=== PATIENT | female | born 1990 | race Caucasian/White ===

== ENCOUNTER 2020-07-24 15:49 | Outpatient (REF) | payer MEDICARE, MEDICAID, SELFPAY ==
[2020-07-24 20:15] LABS: Bilirubin Negative (Negative); Blood Negative (Negative); Clarity Clear (Clear); Glucose Negative (Negative); Ketones Negative (Negative); Leukocyte Esterase Small (Negative); Nitrite Negative (Negative); Urobilinogen 0.2 EU/dL (Up TO 0.2)
[2020-07-24 20:38] LABS: Bacteria Many HPF (Negative); C & S Indicated? Yes; Casts Negative LPF (Negative); Crystals Negative HPF (Negative); Epithelial Cells Few HPF (Negative); Mucus Negative (Negative); RBC 0-2 HPF (0-2); WBC 20-50 HPF (0-5)
== END 2020-07-24 16:09 ==
LOC: NCHCN 15:49
PROVIDERS: PCP Family Medicine; Visit Provider Family Medicine
DX: R82.90 Unspecified abnormal findings in urine (principal)
CPT/HCPCS: 87077; 81003; 81015; 87086; 87186

== ENCOUNTER 2020-08-14 02:04 | Outpatient (CLI) | payer MEDICARE, MEDICAID, SELFPAY ==
[2020-08-16 12:05] LABS: SARS-CoV-2 RNA Not Detected (NotDetected); SARS-CoV-2 RNA Source Nasal/Nares
== END 2020-08-14 02:24 ==
PROVIDERS: Family Medicine; PCP Family Medicine; Visit Provider Family Medicine
DX: R06.09 Other forms of dyspnea (principal)
CPT/HCPCS: U0003

== ENCOUNTER 2020-08-17 04:48 | Outpatient (CLI) | payer MEDICARE, MEDICAID, SELFPAY ==
[2020-08-17] MEDS: Albuterol HFA 18 GM 200 PUFF INH IH (16:10)
[2020-08-17] MEDS: Inhaler, Assist Device 1 EACH MC (16:10)
--- NOTE | 2020-08-19 08:13 | PFT_ITS ---
Date of service: 08/17/20 Time of Service: 03:08 Pulmonary Function Test Result Interpretation Spirometry: no evidence of obstructive airway disease, no bronchodilator response. Mildly low MEP, normal MIP. MVV was not tested Lung Volumes: no restriciton, slight hyperinflation and air trapping Diffusion Capacity: elevated Airway Pressure: normal Impression Elevated isolated diffusion capacity with some element of hyperinflation and air trapping. This constellation of findings can be seen in early hyperreactive airway disease or asthma, therefore if the diagnosis of asthma is in question, proceeding with methacholine challenge testing may prove to be useful. Res piratory muscular function testing shows slightly low MEP but normal MIP. This is unlikely to represent any significant respiratory neuromuscular disease. Clinical Correlation therefore is recommended.
== END 2020-08-17 05:08 ==
PROVIDERS: PCP Family Medicine; Visit Provider Family Medicine
DX: R06.09 Other forms of dyspnea (principal); R07.89 Other chest pain
CPT/HCPCS: 94060; 94726; 94729

== ENCOUNTER 2020-08-17 16:51 | Emergency (ER) | payer MEDICARE, MEDICAID, SELFPAY ==
[2020-08-17] VITALS (23 sets, daily range): BP systolic 92–125; BP diastolic 57–78; PULSE 72–136; RESP 12–24; TEMP 36.7; O2SAT 95–100
--- NOTE | 2020-08-17 17:20 | DI.RAD_ITS ---
EXAM: XR CHEST 2V PA LATERAL CLINICAL HISTORY: near syncope TECHNIQUE: 2D digital imaging was performed. COMPARISON: No exams were available for comparison FINDINGS: MEDIASTINUM: Normal. HEART: Normal. PULMONARY VASCULATURE: Normal. LUNGS: Clear. PLEURAL SPACE: No pleural effusion or pneumothorax. BONE:Normal. OTHER FINDINGS:RELOCATION ASSOCIATE shunt tubing seen along the right side the neck and right and anterior chest wall. IMPRESSION: No acute pulmonary findings. DATA REPOSITORY: RADIATION DOSE DELIVERED:
--- NOTE | 2020-08-17 17:22 | ED.GENADUL_ITS ---
Discharge Plan Disposition Patient Disposition: HOME Condition: Improving Discharge Details Clinical Impression: Acute hypokalemia Primary Care Provider: Yanet Mathis ED Provider: Jhonathan Topete Home Meds and New Rx's Prescriptions: Continued sertraline 25 mg tablet 25 mg PO DAILY RF: 0 albuterol sulfate [ProAir HFA] 90 mcg/actuation HFA aerosol inhaler 2 puff inhalation Q6H PRNRF: 0 baclofen 10 mg tablet 10 mg PO DAILY RF: 0 amitriptyline 10 mg tablet 15 mg PO DAILY RF: 0 montelukast [Singulair] 10 mg tablet 10 mg PO DAILY RF: 0 fluticasone propionate 50 mcg/actuation spray,suspension 1 spray intranasal DAILY RF: 0 fexofenadine [Chata Allergy] 180 mg tablet 180 mg PO DAILY RF: 0 ascorbic acid (vitamin C) 500 mg capsule 500 mg PO DAILY RF: 0 calcium-vitamin D3-vitamin K [Citracal-D3 Soft Chew] 500 mg-1,000 unit-40 mcg tablet,chewable 1 tab PO 5XW RF: 0 ascorbic acid (vitamin C) 100 mg tablet 300 mg PO DAILY RF: 0 multivitamin Capsule 1 cap PO DAILY RF: 0 Discharge Instructions Instructions: Hypokalemia (ED) Additional Instructions: Home to rest this evening. Continue to hydrate with small, frequent sips of fluids to maintain hydration. As we discussed, please liberalize potassium containing foods in the diet such as bananas, strawberries, tree nuts such as cashews or almonds. We will ask our care management team to get a follow-up appointment for you and your primary care clinic for recheck of potassium levels. Return to the emergency department for any acute concerns. Medical Decision Making 29-year-old female who was referred from respiratory therapy. Patient was undergoing PFTs today, and after her second inhalation of albuterol became lightheaded and felt tingling in her fingertips. She did not have a syncopal event. There was no chest pain. She arrives improved. She had little to eat today. Otherwise her review of systems is unremarkable. Patient well-appearing and in no acute distress. She does have a slight resting tachycardia approximately 100. Her exam is otherwise reassuring. There is diagnosed with dehydration, electrolyte abnormality, occult cardiopulmonary process. IV placed, fluids initiated, patient referred for laboratory testing, chest x- ray, EKG. Chest x-ray unremarkable. Labs are notable for a potassium of 3.0. This was supplemented both orally and parenterally in the ED. Patient had an evening meal. Note that her urine was a self catheterized sample. Likely contaminated. Patient felt significantly better after food and potassium. No other concerning findings on her work-up. We will ask care management to arrange an outpatient follow-up for her to ensure normalization of her potassium levels. She will liberalize dietary potassium in the outpatient setting. Stable and improved, appropriate for discharge to home with her mother. Lab Data Lab results reviewed: Yes I reviewed the patient's lab results. Labs: Laboratory Results - last 24 hr 08/17/20 08/17/20 17:35 17:35 WBC 10.62 RBC 4.88 Hgb 13.9 Hct 41.4 MCV 84.8 MCH 28.5 MCHC 33.6 RDW 11.7 Plt Count 283 MPV 9.2 Immature Gran % 0.4 Neutrophils % 79.6 Lymphocytes % 15.1 Monocytes % 4.2 Eosinophils % 0.3 Basophils % 0.4 Nucleated RBC % 0 Absolute Neutrophils 8.46 H Absolute Lymphocytes 1.60 Absolute Monocytes 0.45 Absolute Eosinophils 0.03 Absolute Basophils 0.04 Sodium 136 Potassium 3.0 L Chloride 100 Carbon Dioxide 24.2 Anion Gap 11.8 H BUN 13 Creatinine 0.80 Estimated GFR/1.73 m2 >= 60.00 Glucose 173 H Calcium 9.5 Total Bilirubin 0.4 AST 17 ALT 25 Alkaline Phosphatase 70 Troponin I < 0.05 Total Protein 7.4 Albumin 4.1 HPI General Mode of arrival: ambulatory . Date/Time Provider Initiated Documentation: 08/17/20 16:52 . Limitations to Documentation: no limitations . Information obtained by: patient . History of Present Illness 29 year old F presents to the emergency department with the chief complaint of Near syncope during PFT's, described as moderate, Patient reports no radiation. Patient started experiencing this minute(s) and it has been now resolved. No relieving factors improve symptom(s), No exacerbating factors reported . Patient notes no other symptoms.; denies chest pain, loss of appetite, nausea/vomiting, shortness of breath and syncope. Patient did receive the following treatments prior to arrival, none Related Data Home Medications Medication Instructions Recorded Confirmed albuterol sulfate 90 mcg/actuation 2 puff INHALATION Q6H PRN 07/29/20 08/17/20 aerosol inhaler amitriptyline 10 mg tablet 15 mg PO DAILY tab 07/29/20 08/17/20 ascorbic acid (vitamin C) 100 mg 300 mg PO DAILY tab 07/29/20 08/17/20 tablet ascorbic acid (vitamin C) 500 mg 500 mg PO DAILY 07/29/20 08/17/20 capsule baclofen 10 mg tablet 10 mg PO DAILY 07/29/20 08/17/20 calcium-vitamin D3-vitamin K 500 1 tab PO 5XW 07/29/20 08/17/20 mg-1,000 unit-40 mcg chewable tablet fexofenadine 180 mg tablet 180 mg PO DAILY 07/29/20 08/17/20 fluticasone propionate 50 1 spray INTRANASAL DAILY 07/29/20 08/17/20 mcg/actuation nasal spray,suspension montelukast 10 mg tablet 10 mg PO DAILY 07/29/20 08/17/20 multivitamin 1 cap PO DAILY 07/29/20 08/17/20 sertraline 25 mg tablet 25 mg PO DAILY 07/29/20 08/17/20 Allergies Allergy/AdvReac Type Severity Reaction Status Date / Time latex Allergy Verified 08/17/20 17:06 General Stated Complaint: Dizzy/Sync JODI: 3 Review of Systems Narrative: No recent illness. Has had some anxiety in the past. 6 systems reviewed and otherwise negative [facility] Medical History (Updated 08/17/20 @ 18:48 by Jhonathan Topete MD) Anxiety and depression Hydrocephalus Insomnia Migraine headache Neurogenic bladder Scoliosis SOB (shortness of breath) Spina bifida Tension headache Social History Smoking/Tobacco Use Status: Never Smoking risk assessment performed?: Yes Alcohol Intake: never Drug use: Never Substance use type: does not use Do you feel safe at home: Yes Do you feel safe in your relationship?: Yes Exam Narrative Exam Narrative: GEN: awake, alert, oriented 3. Pleasant, well groomed, interactive. HEAD: Normocephalic, atraumatic ENT: Mucous membranes moist, oropharynx unremarkable, External ear exam unremarkable EYES: PERRL, EOMI NECK: Full ROM, no LISSA, no menigismus CHEST/RESP: Nontender, clear to auscultation bilateral, no wheeze/rhonchi/rales CARDIOVASCULAR: RRR, no murmur, rub mitesh. 2+ Rad pulse bilateral ABDOMEN: Soft, nontender, no mass. +Bowel sounds EXT: Full ROM, no edema, no rash, bilateral leg braces Neuro: Grossly normal neurologic exam, conversant, interactive. Psych: Speech fluent, thoughts congruent, affect normal Course Vital Signs Vital signs: Vital Signs Temperature 36.7 C 08/17/20 16:57 Pulse 89 08/17/20 16:57 Respiratory Rate 17 08/17/20 16:57 Blood Pressure 94/73 L 08/17/20 16:57 Pulse Oximetry 100 08/17/20 16:57 Temperature 36.7 C 08/17/20 16:57 Temperature Source Tympanic 08/17/20 16:57 Pulse 89 08/17/20 16:57 Respiratory Rate 17 08/17/20 17:13 Respiratory Effort Non-Labored 08/17/20 17:13 Respiratory Depth Normal 08/17/20 17:13 Blood Pressure 94/73 L 08/17/20 16:57 Blood Pressure Position Supine 08/17/20 16:57 Pulse Oximetry 100 08/17/20 16:57 Oxygen Delivery Method Room Air 08/17/20 16:57 Oxygen Flow Rate 0 08/17/20 16:57 Pain Level 0 08/17/20 16:57
--- NOTE | 2020-08-17 17:22 | RT.EKG_ITS ---
APPROVED REPORT Exam: Resting ECG Patient Location: E HR:91 bpm ECG Measurements Heart Rate 91 AXIS AZ 120 P 79 QRSd 71 QRS 81 QT 374 T 71 QTc 460 Conclusion Sinus rhythm...normal P axis, V-rate 60- 99
[2020-08-17] MEDS: Normal Saline 500 ML IV (17:40)
[2020-08-17 17:52] LABS: Abs Immature Grans 0.04 10^3/uL (0.0-0.06); Absolute Basophil Count 0.04 10^3/uL (0.0-0.2); Absolute Eosinophil Count 0.03 10^3/uL (0.0-0.7); Absolute Monocyte Count 0.45 10^3/uL (0.1-0.8); Absolute Neutrophil Count 8.46 10^3/uL (1.2-6.7); Basophils % 0.4; Eosinophils % 0.3; HCT 41.4 % (36.0-46.0); HGB 13.9 g/dL (11.2-15.7); Immature Grans % 0.4; Lymphocytes % 15.1; MCH 28.5 pg (27.0-33.0); MCHC 33.6 % (32.0-36.0); MCV 84.8 fL (80-95); MPV 9.2 fL (8.0-11.0); Monocytes % 4.2; Neutrophils % 79.6; Nucleated RBC 0 %; Platelet Count 283 10^3/uL (130-400); RBC 4.88 10^6/uL (3.93-5.22); RDW 11.7 % (11.7-14.6); RDW-SD 35.9 fL; WBC 10.62 10^3/uL (4.4-10.8)
[2020-08-17] MEDS: LORazepam 2 MG/ML VIAL 0.5 MG IVP (17:53)
[2020-08-17 18:08] LABS: ALT 25 U/L (14-59); AST 17 U/L (15-37); Albumin 4.1 g/dL (3.4-5.0); Alkaline Phosphatase 70 U/L (46-116); Anion Gap 11.8 mmol/L (3-11); BUN 13 mg/dL (7-18); Bilirubin, Total 0.4 mg/dL (0.2-1.0); CO2 24.2 mmol/L (21.0-32.0); Calcium 9.5 mg/dL (8.5-10.1); Chloride 100 mmol/L (98-107); Glucose 173 mg/dL (74-106); Sodium 136 mmol/L (136-145); Total Protein 7.4 g/dL (6.4-8.2)
[2020-08-17 18:09] LABS: Troponin I < 0.05 ng/mL (<0.06)
--- NOTE | 2020-08-17 18:25 | DI.VRAD_ITS ---
PROCEDURE INFORMATION: Exam: XR Chest, 2 Views Exam date and time: 08/17/2020 6:12 PM Age: 29 years old Clinical indication: Cough TECHNIQUE: Imaging protocol: XR of the chest Views: 2 views. COMPARISON: No relevant images were readily available for comparison purposes. FINDINGS: Tubes, catheters and devices: Presumed ventriculoperitoneal shunt catheter Lungs: Clear lungs. Pleural space: No pneumothorax. No sizeable effusion. Heart/Mediastinum: Cardiomediastinal silhouette is within normal limits. Bones/joints: No acute displaced fracture or dislocation. IMPRESSION: No acute cardiopulmonary process. Dictated and Authenticated by: Gerald Arguelles MD. Ordering:NIKOLAS Ring MD
[2020-08-17] MEDS: POTASSIUM CHLORIDE 10 MEQ/100 ML BAG 100 MEQ IVPB (18:30)
[2020-08-17] MEDS: Potassium Chloride 20 MEQ TABCR PO (18:30)
[2020-08-17 19:42] LABS: Bilirubin Negative (Negative); Blood Trace-intact (Negative); Clarity Sl Cloudy (Clear); Glucose Negative (Negative); Ketones 40 mg/dL (Negative); Leukocyte Esterase Large (Negative); Nitrite Negative (Negative); Urobilinogen 0.2 EU/dL (Up TO 0.2)
[2020-08-17 19:49] LABS: Epithelial Cells Moderate HPF (Negative); WBC >50 HPF (0-5)
[2020-08-17 19:50] LABS: Bacteria Packed HPF (Negative); C & S Indicated? Yes
--- NOTE | 2020-08-18 06:34 | NUR.NOTE ---
sent referral to CM for follow up appt with pcp. recheck potassium. [facility] ED Nursing Note:
--- NOTE | 2020-08-19 10:40 | W.ED.FU ---
Date of service: 08/19/20 Time of Service: 10:40 Follow Up Plan: Call made to patient regarding urine culture results, voicemail left. Culture shows greater than 100,000 E. coli.
--- NOTE | 2020-08-19 11:35 | ED.FU.B_ITS ---
Date of service: 08/19/20 Time of Service: 11:35 Follow Up Plan: Received a call from Danae this year and her mother Kezia. Discussed urine culture results, has been on cephalexin within the last month. Will call in a prescription for Bactrim twice daily x10 days [facility]uff in [place].
== END 2020-08-17 19:52 | disposition home or self-care (01) ==
PROVIDERS: Emergency Provider Emergency Medicine; PCP Family Medicine
DX: E87.6 Hypokalemia (principal); N39.0 Urinary tract infection, site not specified; B96.20 Unspecified Escherichia coli [E. coli] as the cause of diseases classified elsewhere
CPT/HCPCS: 80053; 81025; 87077; 93005; 96361; 96365; 96375; 99284; 71046; 81003; 81015; 84484; 85025; 87086; 87186; 93010; J2060; J3480

== ENCOUNTER 2020-08-31 12:05 | Outpatient (CLI) | payer MEDICARE, MEDICAID, SELFPAY | END 2020-08-31 12:25 | PROVIDERS: PCP Family Medicine; Visit Provider Family Medicine | DX: J45.30 Mild persistent asthma, uncomplicated (principal) | CPT/HCPCS: 94667 ==

== ENCOUNTER 2021-02-17 02:26 | Outpatient (CLI) | payer MEDICARE, MEDICAID, SELFPAY ==
--- NOTE | 2021-02-17 | DI.US_ITS ---
Exam(s) US RENAL EXAM: US RENAL CLINICAL HISTORY: NEUROGENIC BLADDER, N31.9 TECHNIQUE: Ultrasound of both kidneys performed using standard protocol. COMPARISON: No exams were available for comparison FINDINGS: RIGHT KIDNEY: Measures 9.5 cm in length. No cysts evident. Normal cortical thickness and corticomedullary different iation .No solid masses No intrarenal calculi nor hydronephrosis. LEFT KIDNEY: Measures 9.8 cm in length. No cysts evident. Normal cortical thickness and corticomedullary differen tiaion. No solids masses. No intrarenal calculi nor hydonephrosis. There appears to be mild dilatat ion of upper pole calices, not associated with dilatation renal pelvis. URINARY BLADDER: Prevoid volume is 116 cc Postvoid volume is 0 cc Some mild debris is noted in the urinary bladder and there is mild uniform thickening of the bladder wall. No evidence of bladder mass nor diverticuli. Ureterovesical jets: Both identified and appear symmetrical IMPRESSION: 1. No significant findings in right knee. 2. There is mild dilatation of upper pole calices in the left kidney, not associated with dilatation of the ipsilateral renal pelvis. 3. Complete emptying of the urinary bladder. Mild uniform thickening of the bladder wall and some e chogenic debris in the bladder lumen. DATA REPOSITORY:
== END 2021-02-17 02:46 ==
PROVIDERS: PCP Family Medicine; Visit Provider Family Medicine
DX: N31.9 Neuromuscular dysfunction of bladder, unspecified (principal); N32.89 Other specified disorders of bladder
CPT/HCPCS: 76770

== ENCOUNTER 2022-01-14 15:56 | Outpatient (REF) | payer MEDICARE, MEDICAID, SELFPAY ==
[2022-01-14 17:36] LABS: Bilirubin Negative (Negative); Blood Negative (Negative); Clarity Clear (Clear); Glucose Negative (Negative); Ketones >=160 mg/dL (Negative); Leukocyte Esterase Negative (Negative); Nitrite Negative (Negative); Specific Gravity 1.025 (1.005-1.025); Urobilinogen 0.2 EU/dL (Up TO 0.2); pH 5.5 (5-8)
== END 2022-01-14 15:57 | disposition home or self-care (01) ==
LOC: LBN 15:56
PROVIDERS: PCP Nurse Practitioner; Visit Provider Urology
DX: N31.9 Neuromuscular dysfunction of bladder, unspecified (principal)
CPT/HCPCS: 81003

== ENCOUNTER 2022-03-01 01:22 | Outpatient (CLI) | payer MEDICARE, MEDICAID, SELFPAY ==
[2022-03-01 12:48] LABS: Hemoglobin A1C 5.4 % (<5.7)
[2022-03-01 13:04] LABS: ALT 39 U/L (14-59); AST 22 U/L (15-37); Albumin 4.1 g/dL (3.4-5.0); Alkaline Phosphatase 90 U/L (46-116); Anion Gap 16.9 mmol/L (3-11); BUN 22 mg/dL (7-18); Bilirubin, Total 0.4 mg/dL (0.2-1.0); CO2 21.1 mmol/L (21.0-32.0); CREATININE 0.8 mg/dL (0.55-1.02); Calcium 9.2 mg/dL (8.5-10.1); Calculated LDL 99 mg/dL (<100); Chloride 104 mmol/L (98-107); Cholesterol 167 mg/dL (<200); Glucose 104 mg/dL (74-106); HDL Cholesterol 56 mg/dL (40-60); Potassium 3.7 mmol/L (3.5-5.1); Sodium 142 mmol/L (136-145); Total Protein 7.1 g/dL (6.4-8.2); Triglyceride 63 mg/dL (<150)
== END 2022-03-01 01:23 | disposition home or self-care (01) ==
PROVIDERS: Nurse Practitioner
DX: R82.4 Acetonuria (principal); Z13.6 Encounter for screening for cardiovascular disorders; Z79.899 Other long term (current) drug therapy; Z13.1 Encounter for screening for diabetes mellitus
CPT/HCPCS: 36415; 80053; 80061; 83036

== ENCOUNTER 2023-02-17 00:13 | Outpatient (CLI) | payer MEDICARE, MEDICAID, SELFPAY ==
--- NOTE | 2023-02-17 | DI.US_ITS ---
Exam(s) US RENAL EXAM: US RENAL CLINICAL HISTORY: NEUROGENIC BLADDER TECHNIQUE: Ultrasound of both kidneys performed using standard protocol. COMPARISON: US US RENAL from 02/17/2021 FINDINGS: RIGHT KIDNEY: Measures 9.3 cm in length. No cysts evident. Normal cortical thickness and corticomedullary different iation .No solid masses No intrarenal calculi nor hydronephrosis. LEFT KIDNEY: Measures 9.7 cm in length. No cysts evident. Normal cortical thickness and corticomedullary differen tiaion. No solids masses. No intrarenal calculi nor hydonephrosis. URINARY BLADDER: Prevoid volume is 90 cc Postvoid volume is 0 cc-both catheter There is some debris evident in the urinary bladder. Ureterovesical jets: Not identified IMPRESSION: 1. No significant focal ultrasound findings in the kidneys. Also no hydronephrosis evident on today 's study. 2. There is some debris in the urinary bladder. Postvoid residual post catheterization was almost 0 cc. DATA REPOSITORY:
== END 2023-02-17 00:33 ==
LOC: DI 00:13
PROVIDERS: PCP Family Medicine; Visit Provider Urology
DX: N31.9 Neuromuscular dysfunction of bladder, unspecified (principal)
CPT/HCPCS: 76770

== ENCOUNTER → 2023-09-05 01:26 | Outpatient (CLI) | payer MEDICARE, MEDICAID, SELFPAY ==
--- NOTE | 2023-09-05 08:00 | DI.RAD_ITS ---
Exam(s) XR TOE RT GREAT EXAM: XR TOE RT GREAT CLINICAL HISTORY: toe injury,[id number]. TECHNIQUE: 2D digital imaging was performed. COMPARISON: No exams were available for comparison FINDINGS: BONES: No acute fracture is present. No bony destructive lesion is seen. JOINTS: No dislocation present. Flexion deformity at the interphalangeal joint of the toes. SOFT TISSUE: Normal. IMPRESSION: Flexion deformity at the interphalangeal joint of the great toe. No evidence of fracture. DATA REPOSITORY: RADIATION DOSE DELIVERED:
== END ==
PROVIDERS: PCP Family Medicine; Visit Provider Family Medicine
DX: S99.921A Unspecified injury of right foot, initial encounter (principal); M21.271 Flexion deformity, right ankle and toes; X58.XXXA Exposure to other specified factors, initial encounter
CPT/HCPCS: 73660

== ENCOUNTER → 2024-02-16 00:08 | Outpatient (CLI) | payer MEDICARE, MEDICAID, SELFPAY ==
--- NOTE | 2024-02-16 | DI.US_ITS ---
Exam(s) US RENAL EXAM: US RENAL CLINICAL HISTORY: Neurogenic bladder, N31.9. TECHNIQUE: Mccarthy scale, color and spectral Doppler were used. COMPARISON: US US RENAL from 02/17/2023 FINDINGS: Right kidney: 8.9 cm in length. Echogenicity: Normal Hydronephrosis: No Cyst or mass: No Nephrolithiasis: No Left kidney: 8 cmcm in length. May be underestimated. The upper pole of the left kidney was somewha t obscured by bowel gas. Echogenicity: Normal Hydronephrosis: No Cyst or mass: No Nephrolithiasis: No Bladder:Not well distended but unremarkable. No debris seen on today's exam. Both ureteral jets w ere visualized. Prevoid vol:54 cc Postvoid vol:0 cc IMPRESSION: Negative renal ultrasound. DATA REPOSITORY:
== END ==
PROVIDERS: PCP Family Medicine; Visit Provider Urology
DX: N31.9 Neuromuscular dysfunction of bladder, unspecified (principal)
CPT/HCPCS: 76770

== ENCOUNTER 2024-03-08 16:40 | Emergency (ER) | payer MEDICARE, MEDICAID, SELFPAY ==
[2024-03-08 16:46] VITALS: BP 118/87; PULSE 125; RESP 14; TEMP 37.2; O2SAT 97
--- NOTE | 2024-03-08 16:54 | ED.GENADUL_ITS ---
Discharge Plan Disposition Patient Disposition: Home Condition: Stable Discharge Details Clinical Impression: Pyelonephritis Primary Care Provider: Madison Chauhan ED Provider: Pee Valera Home Meds and New Rx's Prescriptions: New cefpodoxime 200 mg tablet 200 mg PO BID 10 Days Qty: 20 0RF Rx Instructions: must administer with a meal/food Continued albuterol sulfate [Ventolin HFA] 90 mcg/actuation HFA aerosol inhaler 2 puff inhalation Q6H PRN fexofenadine [Chata Allergy] 180 mg tablet 180 mg PO DAILY ascorbic acid (vitamin C) 500 mg capsule 500 mg PO DAILY (DME) catheter 14 Fr misc See Rx Instructions .Route Rx Instructions: As directed calcium phosphate-vitamin D3 [Citracal-D3 Gummies] 250 mg-12.5 mcg (500 unit) tablet,chewable 400 tab PO BID acetylcysteine [NAC] 600 mg capsule 1,200 mg PO BID accapella secretion clearing device PO DAILY PRN (DME) disposable gloves [Nitrile Exam Gloves] Misc See Rx Instructions .Route Rx Instructions: As directed Gemtesa 75 mg tablet 75 mg PO DAILY Qty: 90 3RF budesonide-formoterol [Symbicort] 160-4.5 mcg/actuation HFA aerosol inhaler 1 inh inhalation BID Qty: 10.2 12RF fluticasone propionate 50 mcg/actuation spray,suspension 1 spray intranasal DAILY Qty: 16 12RF Rx Instructions: administer into each nostril montelukast [Singulair] 10 mg tablet 10 mg PO DAILY Qty: 90 3RF paroxetine HCl 20 mg tablet 20 mg PO DAILY Qty: 90 3RF amitriptyline 10 mg tablet 10 mg PO QHS Qty: 90 3RF (DME) leg brace Misc See Rx Instructions .Route Qty: 1 0RF Rx Instructions: As directed - repair left AFO Discharge Instructions Instructions: Cefpodoxime, Urinary Tract Infection, Adult ED Additional Instructions: You were seen in the emergency department for your possible kidney infection with your flank pain and neurogenic bladder and self cath at high risk for UTI, the urinalysis shows that you have nitrites which is definitive for UTI. Your kidney function is normal and your septic workup is negative. I think it is reasonable to try oral antibiotics for curative option. Please return for any severe increase in flank pain, increasing fever, increasing nausea or vomiting despite treatment, the antibiotic should begin to be quite effective on your symptoms by day 3 on antibiotics. Please use Tylenol and ibuprofen for any minor aches and pains as needed. Referrals: Madison Chauhan MD [Primary Care Provider] - Discharge Data Discharge Date/Time-TO BE ENTERED AT DEPARTURE: 03/08/24 18:48 HPI General Date/Time Provider Initiated Documentation: 03/08/24 16:53 . HPI Narrative: 33 year-old female presents to ED today by POV/ambulating with her mother with a chief complaint of flank pain- patient has spina bifida and neurogenic bladder and self-cath's at home, with onset noted for the last 3 days. Quality described as flank pain, was not worse with bumps in the road en route, no radiation to hematuria, fever, cough, chest pain, shortness of breath, patient endorses mild nausea and R>L flank pain. Severity is described as moderate. Palliating factors include nothing specific attempted. Provoking factors include nothing specific. Patient not anticoagulated. Related Data Home Medications Medication Instructions Recorded Confirmed ascorbic acid (vitamin C) 500 mg 500 mg PO DAILY 07/29/20 03/08/24 capsule fexofenadine 180 mg tablet 180 mg PO DAILY 07/29/20 03/08/24 (Chata Allergy) accapella secretion clearing device PO DAILY PRN 12/06/21 09/01/23 acetylcysteine 600 mg capsule (NAC) 1,200 mg PO BID 12/06/21 03/08/24 calcium phosphate 250 mg-vit D3 400 tab PO BID 12/06/21 03/08/24 12.5 mcg (500 unit) chewable tablet (Citracal-D3 Gummies) catheter 14 Fr 12/06/21 03/08/24 disposable gloves (Nitrile Exam 12/07/21 03/08/24 Gloves) albuterol sulfate 90 mcg/actuation 2 puff inhalation Q6H PRN 12/24/21 03/08/24 aerosol inhaler (Ventolin HFA) vibegron 75 mg tablet (Gemtesa) 75 mg PO DAILY #90 tabs 04/25/22 03/08/24 budesonide-formoterol HFA 160 1 inh inhalation BID #10.2 grams 06/08/22 03/08/24 mcg-4.5 mcg/actuation aerosol inhaler (Symbicort) fluticasone propionate 50 1 spray intranasal DAILY #16 grams 01/23/23 03/08/24 mcg/actuation nasal spray,suspension montelukast 10 mg tablet 10 mg PO DAILY #90 tabs 07/17/23 03/08/24 (Singulair) paroxetine HCl 20 mg tablet 20 mg PO DAILY #90 tabs 10/09/23 03/08/24 amitriptyline 10 mg tablet 10 mg PO QHS #90 tabs 10/13/23 03/08/24 leg brace #1 ea 11/24/23 03/08/24 cefpodoxime 200 mg tablet 200 mg PO BID pyelonephritis 03/08/24 days #20 tabs Previous Rx's Medication Instructions Recorded vibegron 75 mg tablet (Gemtesa) 75 mg PO DAILY #90 tabs 04/25/22 budesonide-formoterol HFA 160 1 inh inhalation BID #10.2 grams 06/08/22 mcg-4.5 mcg/actuation aerosol inhaler (Symbicort) fluticasone propionate 50 1 spray intranasal DAILY #16 grams 01/23/23 mcg/actuation nasal spray,suspension montelukast 10 mg tablet 10 mg PO DAILY #90 tabs 07/17/23 (Singulair) paroxetine HCl 20 mg tablet 20 mg PO DAILY #90 tabs 10/09/23 amitriptyline 10 mg tablet 10 mg PO QHS #90 tabs 10/13/23 leg brace #1 ea 11/24/23 cefpodoxime 200 mg tablet 200 mg PO BID pyelonephritis 10 03/08/24 days #20 tabs Allergies Allergy/AdvReac Type Severity Reaction Status Date / Time coconut Allergy Intermediate Itching Unverified 03/08/24 16:50 latex Allergy Intermediate Other (See Verified 03/08/24 16:50 Comment) animal dander Allergy Unknown Unknown Unverified 03/08/24 16:50 General Stated Complaint: FlankPain JODI: 3 Review of Systems All systems reviewed & are unremarkable except as noted in HPI and below Exam Narrative Exam Narrative: GENERAL APPEARANCE: Well-nourished, non-toxic, awake and alert, atraumatic, no acute distress. SKIN: Warm, pink, dry, intact, without rashes/lesions/ulcerations. HEAD: Normocephalic, atraumatic, normal hair distribution for gender/age. EYES: Pupils PERRLA, EOMs intact without nystagmus, normal conjunctiva, no exudates on lids/lashes. ENT: Nares patent, no circumoral cyanosis, no facial swelling NECK: Supple, trachea midline, painless cervical ROM. LUNGS/CHEST: Lungs CTA bilaterally, non-labored respirations, normal A/P diameter, symmetrical expansion, no chest wall deformity HEART (CV/PV): Regular rate and rhythm without murmur, no peripheral edema, no JVD. ABDOMEN: Soft, non-distended, no guarding. MSK: Normal ROM, no swelling/deformity to bilateral UEs or LEs, moving all extremities without weakness, no cyanosis, spine midline without tenderness, normal curvature. NEURO: Mental Status AAOx4 - alert to person, place, time, events No facial droop, no forehead involvement. Motor: No focal weakness - strength 5/5 in bilateral UEs and LEs, proximal and distal, symmetric. Sensory: sensation intact to light touch globally. Gait normal: patient ambulated without ataxia into ED room. PSYCH: euthymic, cooperative, pleasant, appropriate speech Course Vital Signs Vital signs: Vital Signs Temperature 37.2 C 03/08/24 16:46 Pulse 125 H 03/08/24 16:46 Respiratory Rate 14 03/08/24 16:46 Blood Pressure 118/87 03/08/24 16:46 Pulse Oximetry 97 03/08/24 16:46 Temperature 37.2 C 03/08/24 16:46 Temperature Source Skin 03/08/24 16:46 Pulse 125 H 03/08/24 16:46 Respiratory Rate 14 03/08/24 16:46 Blood Pressure 118/87 03/08/24 16:46 Blood Pressure Position Sitting 03/08/24 16:46 Pulse Oximetry 97 03/08/24 16:46 Oxygen Delivery Method Room Air 03/08/24 16:46 Oxygen Flow Rate 0 03/08/24 16:46 Pain Level 8 03/08/24 16:46 Medical Decision Making This dictation utilizes [id number] dictation software and may contain unedited grammatical errors. 33 year-old female presents to ED today by POV/ambulating with her mother with a chief complaint of flank pain- patient has spina bifida and neurogenic bladder and self-cath's at home, with onset noted for the last 3 days. Quality described as flank pain, was not worse with bumps in the road en route, no radiation to hematuria, fever, cough, chest pain, shortness of breath, patient endorses mild nausea and R>L flank pain. Severity is described as moderate. Palliating factors include nothing specific attempted. Provoking factors include nothing specific. Patients' medical history: Spina bifida, scoliosis, chronic constipation, neurogenic bladder, self caths. Family and social history: Noncontributory. Pertinent exam findings / vital signs include right CVA tenderness, no anterior abdominal tenderness or peritoneal signs, stable vitals - HR observed in physical exam on monitor in low 90s. Differential / pathologies of concern include no tenderness to abdomen, right CVA tenderness to percussion, benign cardiopulmonary exam, neuro intact. Diagnostic studies of: -CBC, lactate, CMP, CRP, procalcitonin, lipase, UA, blood cultures. -CBC shows mild leukocytosis of 12.2 -CMP is unremarkable -CRP mildly elevated 1.53 -Lactate negative, procalcitonin negative-do not suspect sepsis -Lipase within normal limits -UA shows positive signs of UTI with nitrites and 10-20 WBCs -Discussed avoidance of CT if patient is comfortable with reassurance that they are not septic at this time with a trial of p.o. antibiotics they agreed and engaged in shared decision-making Interventions of: -Cefpodoxime p.o. outpatient. ED Course/Assessment/Plan: 33-year-old female presents with flank pain, has high risk for UTI due to frequent self caths due to spina bifida. Her UA shows significant signs of UTI with flank pain indicating likely early pyelonephritis, her kidney function is normal and her markers of sepsis are negative. I discussed the option for imaging and the patient gauge in shared decision making we will hold off for now with strict return criteria for increasing fever, nausea, tachycardia, weakness. Findings not consistent with sepsis, fever, peritoneal abdomen. Disposition of pyelonephritis. Patient verbalized understanding of the plan and return to ED criteria and engaged in shared decision making. Medical Records Medical records reviewed: Yes I reviewed the patient's medical records. Lab Data Lab results reviewed: Yes I reviewed the patient's lab results. Labs: 03/08/24 17:40 Urine - Reflex from Ua Urine Culture - Pending 03/08/24 17:25 Blood Blood Culture - Pending 03/08/24 16:59 Blood Blood Culture - Pending Laboratory Tests Range/Units 03/08/24 03/08/24 17:30 17:40 WBC (4.4-10.8) 10^3/uL 12.22 H RBC (3.93-5.22) 10^6/uL 4.85 Hgb (11.2-15.7) g/dL 13.6 Hct (36.0-46.0) % 41.6 MCV (80-95) fL 86 MCH (27.0-33.0) pg 28.0 MCHC (32.0-36.0) % 32.7 RDW (11.7-14.6) % 12.4 Plt Count (130-400) 10^3/uL 218 MPV (8.0-11.0) fL 8.0 Immature Gran % % 0.5 Neutrophils % % 87.7 Lymphocytes % % 5.5 Monocytes % % 5.8 Eosinophils % % 0.2 Basophils % % 0.3 Nucleated RBC % (0.0-0.3) % 0.0 Absolute Neutrophils (1.2-6.7) 10^3/uL 10.72 H Absolute Lymphocytes (1.2-3.4) 10^3/uL 0.67 L Absolute Monocytes (0.1-0.8) 10^3/uL 0.71 Absolute Eosinophils (0.0-0.7) 10^3/uL 0.02 Absolute Basophils (0.0-0.2) 10^3/uL 0.04 VBG Lactate (0.6-1.4) mmol/L 0.9 Sodium (136-145) mmol/L 139 Potassium (3.5-5.1) mmol/L 3.9 Chloride (98-107) mmol/L 102 Carbon Dioxide (21.0-32.0) mmol/L 24.7 Anion Gap (3-11) mmol/L 12.3 H BUN (7-18) mg/dL 12 Creatinine (0.55-1.02) mg/dL 0.7 Est GFR (CKD-EPI 2020) (mL/min/1.73m2) 117.04 Glucose (74-106) mg/dL 79 Calcium (8.5-10.1) mg/dL 9.7 Magnesium (1.8-2.4) mg/dL 1.8 Total Bilirubin (0.2-1.0) mg/dL 0.6 AST (15-37) U/L 17 ALT (14-59) U/L 32 Alkaline Phosphatase (46-116) U/L 76 C-Reactive Protein (<or=0.5) mg/dL 1.53 H Total Protein (6.4-8.2) g/dL 8.3 H Albumin (3.4-5.0) g/dL 4.4 Lipase (16-77) U/L 52 Procalcitonin ng/mL < 0.1 Urine Color (Yellow) Yellow Urine Clarity (Clear) Sl Cloudy Urine pH (5-8) 6.5 Ur Specific [place] (1.005-1.025) 1.020 Urine Protein (Neg-Trace) mg/dL Trace Urine Ketones (Negative) mg/dL 15 H Urine Blood (Negative) Trace-intact H Urine Nitrite (Negative) Positive H Urine Bilirubin (Negative) Negative Urine Urobilinogen (Up to 0.2) mg/dL 0.2 Ur Leukocyte Esterase (Negative) Small H Urine RBC (0-2) HPF 0-2 Urine WBC (0-5) HPF 10-20 H Ur Epithelial Cells (Negative) HPF Few Urine Crystals (Negative) HPF Negative Urine Bacteria (Negative) HPF Many Urine Casts (Negative) LPF Negative Urine Mucus (Negative) Negative Ur Culture Indicated? Yes Urine Glucose (Negative) mg/dL Negative Quality:SDOH Health Related Social Needs: No Data to Display PFSH All Active Problems (Updated 03/08/24 @ 18:32 by LEANDRA Watt) Pyelonephritis (Acute) FH: factor V Leiden mutation (Chronic) mom is heterozygous; father . Alopecia (Chronic) Chronic constipation (Chronic) Onychomycosis (Chronic) toenails great bilat Leg length discrepancy (Chronic) uses lift in right shoe Neurogenic bowel (Chronic) with constipation Asthma (Chronic) GERD (gastroesophageal reflux disease) (Chronic) Anxiety and depression (Chronic) Neurogenic bladder (Chronic) self caths up to 5 x daily, typicaly 3-4 x daiy Spina bifida (Chronic) Allergic rhinitis due to allergen (Chronic) Medical History Club foot resolved with surgery pre school- bilateral Hydrocephalus Insomnia Meningomyelocele Migraine headache Right knee pain Scoliosis Spina bifida Tension headache Tethering of spinal cord repaired 1995 Tongue tied repaired around 1999 Surgical History History of surgical procedure 1995 bilateral heel cord release, repair of club feet bilaterally, surgery for tethered cord in 1994 METROLOGY SPECIALIST (ventriculoperitoneal) shunt status spinal closure with revisions 1993, 1997 Family History (Updated 09/01/23 @ 18:11 by Tamia Powell) Mother Depression Heterozygous factor V Leiden mutation Father , 71 Colon cancer Hypertension Brother No problems noted. Maternal Grandfather , 74 Heart disease Paternal Grandfather , 72 Alcohol use disorder Maternal Grandmother , 86 Depression Diabetes Hypertension Hyperlipidemia Dementia Paternal Grandmother , 84 Alcohol use disorder Asthma Depression Social History (Updated 09/01/23 @ 18:10 by Tamia Powell) Smoking/Tobacco Use Status: Never Second Hand Exposure: No Smoking risk assessment performed?: Yes Alcohol Intake: never Drug use: Never Substance use type: does not use Counseling given: No Counseling provided: none Adopted: No Caregiver/Support person: Yes Foster care: No Household members: family and caregiver Housing: house Communication Needs: None and Corrective Lenses Education Level: college Details: College steps program Do you need help understanding health information?: Often current occupation: Works at [employer]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 Pets and animals: Yes Pets and animals: cat(s) and dog(s) Sexually active: No Do you think of yourself as: bisexual Current gender identity: female What is your relationship status?: never How often do you talk on the phone with friends or family?: never Do you belong to any clubs or organized social groups?: no Panel score (0-1 are the most socially isolated patients): 0 What type of physical activity do you participate in: yoga Duration: < 15 minutes/day Frequency: 1-2 times per week Klarissa/Episcopalian: Non amish Special klarissa needs: Yes (objection to vaccines) Seatbelt use: always Helmet use: Yes Helmet use: always Drive intox or ride w/intox package delivery driver: No Working smoke detector in home: Yes Carbon monox detector in home: Yes Do you feel safe at home: Yes Female Reproductive History Menstrual Duration of menses: 3-5 days control method: other (never active)
[2024-03-08 17:39] LABS: Abs Immature Grans 0.06 10^3/uL (0.0-0.06); Absolute Basophil Count 0.04 10^3/uL (0.0-0.2); Absolute Eosinophil Count 0.02 10^3/uL (0.0-0.7); Absolute Lymphocyte Count 0.67 10^3/uL (1.2-3.4); Absolute Monocyte Count 0.71 10^3/uL (0.1-0.8); Absolute Neutrophil Count 10.72 10^3/uL (1.2-6.7); Basophils % 0.3 %; Eosinophils % 0.2 %; HCT 41.6 % (36.0-46.0); HGB 13.6 g/dL (11.2-15.7); Immature Grans % 0.5 %; Lactate 0.9 mmol/L (0.6-1.4); Lymphocytes % 5.5 %; MCHC 32.7 % (32.0-36.0); MCV 86 fL (80-95); Monocytes % 5.8 %; Neutrophils % 87.7 %; Platelet Count 218 10^3/uL (130-400); RBC 4.85 10^6/uL (3.93-5.22); RDW 12.4 % (11.7-14.6); RDW-SD 39.2 fL; WBC 12.22 10^3/uL (4.4-10.8)
[2024-03-08 17:59] LABS: ALT 32 U/L (14-59); AST 17 U/L (15-37); Albumin 4.4 g/dL (3.4-5.0); Alkaline Phosphatase 76 U/L (46-116); Anion Gap 12.3 mmol/L (3-11); BUN 12 mg/dL (7-18); Bilirubin, Total 0.6 mg/dL (0.2-1.0); C-Reactive Protein 1.53 mg/dL (<or=0.5); CO2 24.7 mmol/L (21.0-32.0); CREATININE 0.7 mg/dL (0.55-1.02); Calcium 9.7 mg/dL (8.5-10.1); Chloride 102 mmol/L (98-107); Estimated GFR 117.04 (mL/min/1.73m2); Glucose 79 mg/dL (74-106); Lipase 52 U/L (16-77); Magnesium 1.8 mg/dL (1.8-2.4); Potassium 3.9 mmol/L (3.5-5.1); Sodium 139 mmol/L (136-145); Total Protein 8.3 g/dL (6.4-8.2)
[2024-03-08 18:01] LABS: Bilirubin Negative (Negative); Blood Trace-intact (Negative); Clarity Sl Cloudy (Clear); Glucose Negative (Negative); Ketones 15 mg/dL (Negative); Leukocyte Esterase Small (Negative); Nitrite Positive (Negative); Urobilinogen 0.2 mg/dL (Up to 0.2); pH 6.5 (5-8)
[2024-03-08 18:08] LABS: Bacteria Many HPF (Negative); C & S Indicated? Yes; Casts Negative LPF (Negative); Crystals Negative HPF (Negative); Epithelial Cells Few HPF (Negative); Mucus Negative (Negative); RBC 0-2 HPF (0-2)
[2024-03-08 18:14] LABS: Procalcitonin < 0.1 ng/mL
[2024-03-08] MEDS: Cefpodoxime 200 MG TAB PO (18:48)
== END 2024-03-08 18:48 | disposition home or self-care (01) ==
PROVIDERS: Emergency Provider Physician Assistant; PCP Family Medicine
DX: N10 Acute pyelonephritis (principal); B96.29 Other Escherichia coli [E. coli] as the cause of diseases classified elsewhere; N31.9 Neuromuscular dysfunction of bladder, unspecified; Q05.9 Spina bifida, unspecified; D68.51 Activated protein C resistance
CPT/HCPCS: 80053; 83690; 84145; 87040; 87077; 99283; 81003; 81015; 83605; 83735; 85025; 86140; 87086; 87186

== ENCOUNTER 2024-09-16 11:58 | Emergency (ER) | payer MEDICARE, MEDICAID, SELFPAY ==
[2024-09-16] VITALS (20 sets, daily range): BP systolic 104–125; BP diastolic 71–86; PULSE 78–111; RESP 13–23; TEMP 36.4–36.8; O2SAT 99–100
--- NOTE | 2024-09-16 12:15 | DI.RAD_ITS ---
Exam(s) XR SHUNT SERIES EXAM: XR SHUNT SERIES CLINICAL HISTORY: nausea, lump near shunt tubing in chest. TECHNIQUE: 2D digital imaging was performed. COMPARISON: CR,XR XR CHEST 2V PA LATERAL from 08/17/2020 Findings: SKULL: Unremarkable. No destructive osseous lesion seen. LUNGS: Clear. No pleural abnormality seen. HEART: Normal. MEDIASTINUM: Normal. BOWEL GAS PATTERN: Large quantity of stool throughout the colon. Nondistended bowel loops. No air-fl uid levels seen. ABNORMAL COLLECTIONS OF AIR: No abnormal collection of air. No pneumoperitoneum. CALCIFICATIONS: None. No radiopaque renal, ureteral, or bladder calcification. Bones: Spina bifida from L5 through upper to mid sacrum. Mild scoliosis. Mildly dysplastic hips. SHUNT CATHETER: Right-sided ventriculoperitoneal shunt. An there is a break in the shunt tubing seen in the lower neck, at C7. There is kinking of the tubing. There is a separate piece of shunt tubin g adjacent to the main shunt tubing. The shunt catheter from the level of the upper chest to the lev el of the abdomen is continuous without evidence of kink or break. IMPRESSION: 1. Disruption of the ventricular peritoneal shunt at the right side of the lower neck. 2. No acute pulmonary findings. 3. Large quantity of stool. DATA REPOSITORY: RADIATION DOSE DELIVERED:
--- NOTE | 2024-09-16 12:37 | W.ED.GENAD ---
Discharge Plan Disposition Patient Disposition: Transfer-Acute Inpatient Care Specific Acute Inpt Facility: [facility] Condition: Stable Discharge Details Clinical Impression: Malfunction of ventriculoperitoneal shunt Primary Care Provider: Madison Chauhan ED Provider: Pee Valera Home Meds and New Rx's Prescriptions: No Action albuterol sulfate [Ventolin HFA] 90 mcg/actuation HFA aerosol inhaler 2 puff inhalation Q6H PRN fexofenadine [Chata Allergy] 180 mg tablet 180 mg PO DAILY ascorbic acid (vitamin C) 500 mg capsule 500 mg PO DAILY (DME) catheter 14 Fr misc See Rx Instructions .Route Rx Instructions: As directed calcium phosphate-vitamin D3 [Citracal-D3 Gummies] 250 mg-12.5 mcg (500 unit) tablet,chewable 400 tab PO BID acetylcysteine [NAC] 600 mg capsule 1,200 mg PO BID accapella secretion clearing device PO DAILY PRN (DME) disposable gloves [Nitrile Exam Gloves] Misc See Rx Instructions .Route Rx Instructions: As directed Gemtesa 75 mg tablet 75 mg PO DAILY Qty: 90 3RF paroxetine HCl 20 mg tablet 20 mg PO DAILY Qty: 90 3RF amitriptyline 10 mg tablet 10 mg PO QHS Qty: 90 3RF (DME) leg brace Misc See Rx Instructions .Route Qty: 1 0RF Rx Instructions: As directed - repair left AFO fluticasone propionate 50 mcg/actuation spray,suspension 1 spray intranasal DAILY Qty: 16 12RF Rx Instructions: administer into each nostril HPI General Date/Time Provider Initiated Documentation: 09/16/24 12:18. HPI Narrative: 33 year-old female, spina bifida patient, presents to ED today by POV/ambulating with her mother with a chief complaint of possible ventricular shunt problem- has nausea, feels swelling and soreness next to the tubing in upper R chest with onset this morning. Quality described as nausea, some RUQ pain and R chest soreness, no radiation to visual changes, intractable vomiting- was able to keep down morning medications. Severity is described as 4-5/10. Palliating factors include nothing specific attempted. Provoking factors include nothing specific. Events leading up to the incident/Associated Symptoms: Patient had shunt placed many years ago at [facility] [place]. Patient not anticoagulated. Related Data Home Medications ?Medication ?Instructions ?Recorded ?Confirmed ascorbic acid (vitamin C) 500 mg 500 mg PO DAILY 07/29/20 09/16/24 capsule fexofenadine 180 mg tablet 180 mg PO DAILY 07/29/20 09/16/24 (Chata Allergy) accapella secretion clearing device PO DAILY PRN 12/06/21 09/01/23 acetylcysteine 600 mg capsule (NAC) 1,200 mg PO BID 12/06/21 09/16/24 calcium 250 mg (phosphate)-vit D3 400 tab PO BID 12/06/21 09/16/24 12.5 mcg (500 unit) chewable tablet (Citracal-D3 Gummies) catheter 14 Fr 12/06/21 09/16/24 disposable gloves (Nitrile Exam 12/07/21 09/16/24 Gloves) albuterol sulfate 90 mcg/actuation 2 puff inhalation Q6H PRN 12/24/21 09/16/24 aerosol inhaler (Ventolin HFA) vibegron 75 mg tablet (Gemtesa) 75 mg PO DAILY #90 tabs 04/25/22 09/16/24 paroxetine HCl 20 mg tablet 20 mg PO DAILY #90 tabs 10/09/23 09/16/24 amitriptyline 10 mg tablet 10 mg PO QHS #90 tabs 10/13/23 09/16/24 leg brace #1 ea 11/24/23 09/16/24 fluticasone propionate 50 1 spray intranasal DAILY #16 grams 03/18/24 09/16/24 mcg/actuation nasal spray,suspension Previous Rx's ?Medication ?Instructions ?Recorded vibegron 75 mg tablet (Gemtesa) 75 mg PO DAILY #90 tabs 04/25/22 paroxetine HCl 20 mg tablet 20 mg PO DAILY #90 tabs 10/09/23 amitriptyline 10 mg tablet 10 mg PO QHS #90 tabs 10/13/23 leg brace #1 ea 11/24/23 fluticasone propionate 50 1 spray intranasal DAILY #16 grams 03/18/24 mcg/actuation nasal spray,suspension Allergies Allergy/AdvReac Type Severity Reaction Status Date / Time coconut Allergy Intermediate Itching Unverified 09/16/24 12:25 latex Allergy Intermediate Other (See Verified 09/16/24 12:25 Comment) animal dander Allergy Unknown Unknown Unverified 09/16/24 12:25 General Stated Complaint: Nausea/Vomit/Diar JODI: 3 Review of Systems All systems reviewed & are unremarkable except as noted in HPI and below Exam Narrative Exam Narrative: GENERAL APPEARANCE: Well-nourished, non-toxic, awake and alert, atraumatic, no acute distress. SKIN: Warm, pink, dry, intact, without rashes/lesions/ulcerations. HEAD: Normocephalic, atraumatic, normal hair distribution for gender/age. EYES: Normal conjunctiva, no exudates on lids/lashes. ENT: Nares patent, no circumoral cyanosis, no facial swelling NECK: Supple, trachea midline, painless cervical ROM. LUNGS/CHEST: Lungs CTA bilaterally- no rhonchi/rales/wheezes diffusely, non-labored respirations, normal A/P diameter, symmetrical expansion, no chest wall deformity, TTP to R upper chest without erythema/pitting edema HEART (CV/PV): Regular rate and rhythm without murmur, no peripheral edema, no JVD. ABDOMEN: Soft, non-distended, no guarding, mild RUQ tenderness with negative Cedillo's. MSK: Normal ROM, no swelling/deformity to bilateral UEs or LEs, moving all extremities without weakness, no cyanosis, spine midline without tenderness, normal curvature. NEURO: Mental Status AAOx4 - alert to person, place, time, events No facial droop, no forehead involvement. Motor: No focal weakness - strength 5/5 in bilateral UEs and LEs, proximal and distal, symmetric. Sensory: sensation intact to light touch globally. Gait NT PSYCH: euthymic, cooperative, pleasant, appropriate speech Course Vital Signs Vital signs: Vital Signs Temperature 36.4 C 09/16/24 12:03 Pulse 89 09/16/24 12:03 Respiratory Rate 18 09/16/24 12:03 Blood Pressure 121/86 09/16/24 12:03 Pulse Oximetry 100 09/16/24 12:03 Temperature 36.6 C 09/16/24 12:21 Temperature Source Oral 09/16/24 12:21 Pulse 89 09/16/24 12:21 Respiratory Rate 17 09/16/24 12:21 Blood Pressure 122/78 09/16/24 12:21 Blood Pressure Position Sitting 09/16/24 12:21 Pulse Oximetry 100 09/16/24 12:21 Oxygen Delivery Method Room Air 09/16/24 12:21 Oxygen Flow Rate 0 09/16/24 12:03 Pain Level 1 09/16/24 12:21 Medical Decision Making This dictation utilizes [id number] dictation software and may contain unedited grammatical errors. 33 year-old female, spina bifida patient, presents to ED today by POV/ambulating with her mother with a chief complaint of possible ventricular shunt problem- has nausea, feels swelling and soreness next to the tubing in upper R chest with onset this morning. Quality described as nausea, some RUQ pain and R chest soreness, no radiation to visual changes, intractable vomiting- was able to keep down morning medications. Severity is described as 4-5/10. Palliating factors include nothing specific attempted. Provoking factors include nothing specific. Events leading up to the incident/Associated Symptoms: Patient had shunt placed many years ago at [facility] [place]. Patients' medical history: Tethering of spinal cord, meningomyelocele, insomnia, clubfoot, migraine headache, hydrocephalus, scoliosis, tension headache, factor V Leiden mutation, alopecia, neurogenic bowel, GERD, neurogenic bladder. Family and social history: Lives at home with mom. Pertinent exam findings / vital signs include right upper quadrant tenderness without Cedillo sign, no peritoneal signs like Rovsing's or McBurney's point tenderness, no CVA tenderness percussion bilaterally, mild swelling at the right chest almost at the level of the clavicle that is nonpitting, no skin discoloration, benign cardiac exam, neuro intact. Differential / pathologies of concern include shunt problem, nausea related to hydrocephalus, biliary tree pathology, gastroenteritis. Diagnostic studies of: -Laboratory workup is quite benign with only barely above normal leukocytosis WBC 10.9, lactate negative, lipase negative, TSH within normal limits, troponin negative, CMP benign. -XR shunt series shows disruption of shunt in chest/neck at level of C7 Interventions of: -[facility] [place] neurosurgery consult for transfer. ED Course/Assessment/Plan: 33-year-old female presents with some subjective swelling and soreness to her right upper chest with a ventriculoperitoneal shunt placed 20+ years ago at [facility] [place] for spina bifida and hydrocephalus. She has had some nausea, she concurrently has right upper quadrant tenderness but is not peritoneal, she was hesitant to have CT abdomen performed due to radiation exposure but I did stress that she should have at least ultrasound of the right upper quadrant once her shunt problem is fixed, patient is signed out to Lindy Rodney NP with pending neurosurgery consult from [facility] [place] for disruption of ventriculoperitoneal shunt, patient is neuro intact focally. [id number] I spoke with Chuy Lassiter PA-C at [facility] [place] neurosurgery, he recommends CT head, he is going to recheck with neurosurgery attendings and reconsult will be performed with CT head results pushed to [facility] [place], they anticipate this is possibly going to be a scheduled outpatient revision. Findings not consistent with stroke, peritoneal abdomen, elevated LFTs/lipase. Disposition of Malfunction of Ventriculoperitoneal Shunt. Patient verbalized understanding of the plan and return to ED criteria and engaged in shared decision making. Medical Records Medical records reviewed: Yes I reviewed the patient's medical records. Imaging Data Radiologic Study: Attestation: I personally reviewed and interpreted this imaging study as follows: Imaging: X-Ray Radiologist's impression: EXAM: XR SHUNT SERIES CLINICAL HISTORY: nausea, lump near shunt tubing in chest. TECHNIQUE: 2D digital imaging was performed. COMPARISON: CR,XR XR CHEST 2V PA LATERAL from 08/17/2020 Findings: SKULL: Unremarkable. No destructive osseous lesion seen. LUNGS: Clear. No pleural abnormality seen. HEART: Normal. MEDIASTINUM: Normal. BOWEL GAS PATTERN: Large quantity of stool throughout the colon. Nondistended bowel loops. No air-fluid levels seen. ABNORMAL COLLECTIONS OF AIR: No abnormal collection of air. No pneumoperitoneum. CALCIFICATIONS: None. No radiopaque renal, ureteral, or bladder calcification. Bones: Spina bifida from L5 through upper to mid sacrum. Mild scoliosis. Mildly dysplastic hips. SHUNT CATHETER: Right-sided ventriculoperitoneal shunt. An there is a break in the shunt tubing seen in the lower neck, at C7. There is kinking of the tubing. There is a separate piece of shunt tubing adjacent to the main shunt tubing. The shunt catheter from the level of the upper chest to the level of the abdomen is continuous without evidence of kink or break. IMPRESSION: 1. Disruption of the ventricular peritoneal shunt at the right side of the lower neck. 2. No acute pulmonary findings. 3. Large quantity of stool. Lab Data Lab results reviewed: Yes I reviewed the patient's lab results. Labs: Laboratory Tests Range/Units 09/16/ 12:37 WBC (4.4-10.8) 10^3/uL 10.93 H RBC (3.93-5.22) 10^6/uL 5.27 H Hgb (11.2-15.7) g/dL 14.8 Hct (36.0-46.0) % 45.1 MCV (80-95) fL 86 MCH (27.0-33.0) pg 28.1 MCHC (32.0-36.0) % 32.8 RDW (11.7-14.6) % 13.1 Plt Count (130-400) 10^3/uL 246 MPV (8.0-11.0) fL 8.3 Immature Gran % % 0.4 Neutrophils % % 88.0 Lymphocytes % % 6.2 Monocytes % % 3.8 Eosinophils % % 1.1 Basophils % % 0.5 Nucleated RBC % (0.0-0.3) % 0.0 Absolute Neutrophils (1.2-6.7) 10^3/uL 9.62 H Absolute Lymphocytes (1.2-3.4) 10^3/uL 0.68 L Absolute Monocytes (0.1-0.8) 10^3/uL 0.42 Absolute Eosinophils (0.0-0.7) 10^3/uL 0.12 Absolute Basophils (0.0-0.2) 10^3/uL 0.05 VBG Lactate (0.6-1.4) mmol/L 1.3 Sodium (136-145) mmol/L 142 Potassium (3.5-5.1) mmol/L 3.7 Chloride (98-107) mmol/L 106 Carbon Dioxide (21.0-32.0) mmol/L 24.7 Anion Gap (3-11) mmol/L 11.3 H BUN (7-18) mg/dL 13 Creatinine (0.55-1.02) mg/dL 0.8 Est GFR (CKD-EPI 2020) (mL/min/1.73m2) 99.71 Glucose (74-106) mg/dL 126 H Calcium (8.5-10.1) mg/dL 9.6 Magnesium (1.8-2.4) mg/dL 1.8 Total Bilirubin (0.2-1.0) mg/dL 0.44 AST (15-37) U/L 18 ALT (14-59) U/L 26 Alkaline Phosphatase (46-116) U/L 74 Troponin I (<or=51) ng/L < 4 Total Protein (6.4-8.2) g/dL 7.8 Albumin (3.4-5.0) g/dL 4.4 Lipase (<78) U/L 41 TSH (0.36-3.74) uIU/mL 1.66 Quality:[facility] Health Related Social Needs: No Data to Display PFSH All Active Problems (Updated 09/16/24 @ 14:46 by LEANDRA Watt) Malfunction of ventriculoperitoneal shunt (Acute) FH: factor V Leiden mutation (Chronic) mom is heterozygous; father . Alopecia (Chronic) Chronic constipation (Chronic) Onychomycosis (Chronic) toenails great bilat Leg length discrepancy (Chronic) uses lift in right shoe Neurogenic bowel (Chronic) with constipation Asthma (Chronic) GERD (gastroesophageal reflux disease) (Chronic) Anxiety and depression (Chronic) Neurogenic bladder (Chronic) self caths up to 5 x daily, typicaly 3-4 x daiy Spina bifida (Chronic) Allergic rhinitis due to allergen (Chronic) Medical History Club foot resolved with surgery pre school- bilateral Hydrocephalus Insomnia Meningomyelocele Migraine headache Right knee pain Scoliosis Spina bifida Tension headache Tethering of spinal cord repaired 1995 Tongue tied repaired around 1999 Surgical History History of surgical procedure 1995 bilateral heel cord release, repair of club feet bilaterally, surgery for tethered cord in 1994 DESIGN ANALYST (ventriculoperitoneal) shunt status spinal closure with revisions 1993, 1997 Family History (Updated 09/01/23 @ 18:11 by Tamia Powell) Mother Depression Heterozygous factor V Leiden mutation Father , 71 Colon cancer Hypertension Brother No problems noted. Maternal Grandfather , 74 Heart disease Paternal Grandfather , 72 Alcohol use disorder Maternal Grandmother , 86 Depression Diabetes Hypertension Hyperlipidemia Dementia Paternal Grandmother , 84 Alcohol use disorder Asthma Depression Social History (Updated 09/01/23 @ 18:10 by Tamia Powell) Smoking/Tobacco Use Status: Never Second Hand Exposure: No Smoking risk assessment performed?: Yes Alcohol Intake: never Drug use: Never Substance use type: does not use Counseling given: No Counseling provided: none Adopted: No Caregiver/Support person: Yes Foster care: No Household members: family and caregiver Housing: house Communication Needs: None and Corrective Lenses Education Level: college Details: College steps program Do you need help understanding health information?: Often current occupation: Works at [employer]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 Pets and animals: Yes Pets and animals: cat(s) and dog(s) Sexually active: No Do you think of yourself as: bisexual Current gender identity: female What is your relationship status?: never How often do you talk on the phone with friends or family?: never How often do you get together with friends or relatives?: decline to answer How often do you attend latter-day or anabaptist services?: 4 or more times per year Do you belong to any clubs or organized social groups?: no Panel score (0-1 are the most socially isolated patients): 1 What type of physical activity do you participate in: yoga Duration: < 15 minutes/day Frequency: 1-2 times per week Klarissa/Samaritan: Non jewish Special klarissa needs: Yes (objection to vaccines) Seatbelt use: always Helmet use: Yes Helmet use: always Drive intox or ride w/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
[2024-09-16 12:43] LABS: Abs Immature Grans 0.04 10^3/uL (0.0-0.06); Absolute Basophil Count 0.05 10^3/uL (0.0-0.2); Absolute Eosinophil Count 0.12 10^3/uL (0.0-0.7); Absolute Lymphocyte Count 0.68 10^3/uL (1.2-3.4); Absolute Monocyte Count 0.42 10^3/uL (0.1-0.8); Absolute Neutrophil Count 9.62 10^3/uL (1.2-6.7); Basophils % 0.5 %; Eosinophils % 1.1 %; HCT 45.1 % (36.0-46.0); HGB 14.8 g/dL (11.2-15.7); Immature Grans % 0.4 %; Lymphocytes % 6.2 %; MCH 28.1 pg (27.0-33.0); MCHC 32.8 % (32.0-36.0); MCV 86 fL (80-95); MPV 8.3 fL (8.0-11.0); Monocytes % 3.8 %; Platelet Count 246 10^3/uL (130-400); RBC 5.27 10^6/uL (3.93-5.22); RDW 13.1 % (11.7-14.6); RDW-SD 41.2 fL; WBC 10.93 10^3/uL (4.4-10.8)
[2024-09-16 12:45] LABS: Lactate 1.3 mmol/L (0.6-1.4)
[2024-09-16] MEDS: Normal Saline - Diluent 50 ML VIAL IJ (12:51)
[2024-09-16 13:08] LABS: ALT 26 U/L (14-59); AST 18 U/L (15-37); Albumin 4.4 g/dL (3.4-5.0); Alkaline Phosphatase 74 U/L (46-116); Anion Gap 11.3 mmol/L (3-11); BUN 13 mg/dL (7-18); Bilirubin, Total 0.44 mg/dL (0.2-1.0); CO2 24.7 mmol/L (21.0-32.0); CREATININE 0.8 mg/dL (0.55-1.02); Chloride 106 mmol/L (98-107); Estimated GFR 99.71 (mL/min/1.73m2); Glucose 126 mg/dL (74-106); Lipase 41 U/L (<78); Magnesium 1.8 mg/dL (1.8-2.4); Potassium 3.7 mmol/L (3.5-5.1); Sodium 142 mmol/L (136-145); Total Protein 7.8 g/dL (6.4-8.2)
[2024-09-16 13:14] LABS: Calcium 9.6 mg/dL (8.5-10.1)
[2024-09-16 13:50] LABS: TSH (W/Ref FT4) 1.66 uIU/mL (0.36-3.74); Troponin I < 4 ng/L (<or=51)
[2024-09-16 16:06] LABS: Bilirubin Negative (Negative); Blood Negative (Negative); Clarity Clear (Clear); Glucose Negative (Negative); Ketones >=160 mg/dL (Negative); Leukocyte Esterase Negative (Negative); Nitrite Negative (Negative); Specific Gravity 1.025 (1.005-1.025); Urobilinogen 0.2 mg/dL (Up to 0.2); pH 8.5 (5-8)
--- NOTE | 2024-09-16 16:11 | DI.CT_ITS ---
Exam(s) CT HEAD WO EXAM: CT HEAD WO CLINICAL HISTORY: LAMINATION OPERATOR shunt check, ?ventriculomegaly. TECHNIQUE: Imaging Protocol: Axial computed tomography images with coronal and sagittal reformatted images were created and reviewed COMPARISON: No exams were available for comparison FINDINGS: There is a right-sided ventriculoperitoneal shunt. The tip of the tube is seen at the right lateral ventricle. Ventricles and Extra axial spaces: Normal in size and morphology for the patient's age. Hemorrhage: None. Cerebral parenchyma: No mass effect. No acute territorial infarct. Midline shift: None. Brainstem/Cerebellum: Normal. Calvarium: Normal. Visualized Paranasal sinuses/Mastoids: Clear. Soft Tissues: Unremarkable. IMPRESSION: 1. No acute intracranial process. 2. Ventricular size is within normal limits. RADIATION DOSE DELIVERED: 858.9mGy.cm Total DLP DATA REPOSITORY: All CT scans at this facility are submitted to the National Radiology Data Registry (NRDR) Dose Index Registry (DIR) with the [employer] (ACR). RADIATION OPTIMIZATION: All CT scans at this facility use at least one of these dose optimization te chniques: automated exposure control; mA and/or kV adjustment per patient size (includes targeted exa ms where dose is matched to clinical indication); or iterative reconstruction.
[2024-09-16 16:21] LABS: Bacteria Many HPF (Negative); C & S Indicated? No; Crystals Negative HPF (Negative); Epithelial Cells Many HPF (Negative); Mucus Negative (Negative); RBC 0-2 HPF (0-2)
--- NOTE | 2024-09-16 16:31 | ED.FU.B_ITS ---
Follow Up Plan: Handoff report received from LEANDRA Kumar daytime [facility]. Please see his note for full HPI, ROS, physical exam, and diagnostic so far. I did briefly interviewed patientMario Strickland is a 33-year-old female who presented to the emergency department today for evaluation of 3 days of mild headache that comes and goes, alleviated with ibuprofen. This is not accompanied by any neurological symptoms. She also reports for the last couple of weeks she has had some nausea throughout the day, is able to take p.o. fluids but has a decreased appetite. She is able to eat dinner at night. Denies fever/chills, abdominal pain, change in bowel or bladder function, generalized feeling of unwellness, neurological symptoms such as dizziness, vision change, weakness, confusion. Overall workup today reassuring. Mild leukocytosis noted on CBC; CMP, TSH, lipase, troponin, and UA unremarkable. Head CT reassuring. Discussed case with LEANDRA Vera at [facility] [place]. He says that patient is appropriate for outpatient follow-up in light of reassuring history, physical exam, and CT. Workup significant for ventricular shunt malfunction with no acute findings at this time requiring transfer for emergent management. Reviewed CT, xray, and lab findings, as well as discharge instructions with patient and her mother, including recommendation for outpatient ultrasound, red flags indicating need for return to emergency care, and importance of follow-up with neurosurgery.
== END 2024-09-16 17:36 | disposition home or self-care (01) ==
PROVIDERS: Physician Assistant; Emergency Provider Nurse Practitioner Family; PCP Family Medicine
DX: T85.618A Breakdown (mechanical) of other specified internal prosthetic devices, implants and grafts, initial encounter (principal); Z98.2 Presence of cerebrospinal fluid drainage device; Q05.0 Cervical spina bifida with hydrocephalus; Z79.899 Other long term (current) drug therapy
CPT/HCPCS: 36415; 80053; 83690; 99285; 70360; 70450; 71045; 72050; 74018; 81003; 81015; 83605; 83735; 84443; 84484; 85025

== ENCOUNTER 2024-12-10 11:11 | Emergency (ER) | payer MEDICARE, MEDICAID, SELFPAY ==
--- NOTE | 2024-12-10 11:12 | ED.GENADUL_ITS ---
Discharge Plan Disposition Patient Disposition: Home Discharge Details Clinical Impression: Acute UTI, Pain in left foot, Self-catheterizes urinary bladder Primary Care Provider: Madison Chauhan ED Provider: Diallo Davies Home Meds and New Rx's Prescriptions: New cefpodoxime 200 mg tablet 200 mg PO Q12H 5 Days Qty: 20 0RF Rx Instructions: must administer with a meal/food Continued albuterol sulfate [Ventolin HFA] 90 mcg/actuation HFA aerosol inhaler 2 puff inhalation Q6H PRN fexofenadine [Chata Allergy] 180 mg tablet 180 mg PO DAILY ascorbic acid (vitamin C) 500 mg capsule 500 mg PO DAILY (DME) catheter 14 Fr misc See Rx Instructions .Route Rx Instructions: As directed calcium phosphate-vitamin D3 [Citracal-D3 Gummies] 250 mg-12.5 mcg (500 unit) tablet,chewable 400 tab PO BID acetylcysteine [NAC] 600 mg capsule 1,200 mg PO BID accapella secretion clearing device PO DAILY PRN Patient Comments: uses when she needs it (DME) disposable gloves [Nitrile Exam Gloves] Misc See Rx Instructions .Route Rx Instructions: As directed (DME) leg brace Misc See Rx Instructions .Route Qty: 1 0RF Rx Instructions: As directed - repair left AFO fluticasone propionate 50 mcg/actuation spray,suspension 1 spray intranasal DAILY Qty: 16 12RF Rx Instructions: administer into each nostril Gemtesa 75 mg tablet 75 mg PO DAILY Qty: 90 3RF paroxetine HCl 20 mg tablet 20 mg PO DAILY Qty: 90 3RF amitriptyline 10 mg tablet 10 mg PO QHS Qty: 90 3RF Discharge Instructions Instructions: Urinary tract infections in adults, Urinary tract infection - Discharge instructions Additional Instructions: You were seen in the emergency department for your skin changes on your foot. You have no sign of a pressure ulcer at the moment however please return to the emergency department if you develop foul-smelling drainage fevers chills nausea or vomiting. Otherwise please follow-up with your primary care provider. You are also found to have a urinary tract infection for which you were receiving antibiotics that you should take as directed. As we discussed if develop fevers cannot take your antibiotics as result of nausea or vomiting or if you have any other concerns please return to the emergency department. Discharge Data Discharge Date/Time-TO BE ENTERED AT DEPARTURE: 12/10/24 12:46 HPI General Date/Time Provider Initiated Documentation: 12/10/24 11:12 . HPI Narrative: MDM This is an overall well-appearing initially tachycardic but normothermic 34-year-old female with mild discoloration to medial aspect of left distal foot concerning for the possibility of early pressure sore for which patient was discharged with empiric trial of expectant outpatient management. Patient also found to have a urinary tract infection for which she received cephalexin for 5 days based on pansensitive e. coli that is growing from culture results last year. No pain or proportion to suggest necrotizing soft tissue infection. Patient is warm well-perfused extremities so not concern for critical limb ischemia I do not feel that the patient requires emergent CT angiogram with runoff. No fluctuance to suggest abscess. No erythema to suggest cellulitis. No trauma to suggest benefit from plain films. No history of gout and no significant swelling to suggest gouty arthritis. No history of IV drug use to suggest increased risk for septic joint and in the absence of erythema and not concern for septic joint. I advised patient and her mother that her symptoms certainly could represent the beginning of a pressure injury from her braces that could develop into an ulcer. Mother also reports that the patient eats an excessive amount of sweets. It is certainly possible that the patient could be developing diabetes. I do not feel that she is having an emergent complication of diabetes and she denies polyuria and polydipsia so I did not feel that she requires assessment of her labs in the emergency department. In reviewing her record it does seem that she had a reassuring normal hemoglobin A1c less than 3 years ago. I offered to connect the patient with local power plant superintendent for follow- up. Patient mother reported that she had had's a good experience in the past with a power plant superintendent in [place]. I advised primary care follow-up for outpatient podiatry referral. We also discussed that the patient should return to the emergency department if she developed any open sores on her feet if she developed any fevers decreased range of motion decreased sensation in her feet. She understood her return indications and was discharged with an empiric trial of expectant outpatient management. HPI This is a 34-year-old female with a history of spina bifida neurogenic bladder and lower extremity AFO braces right emergency department via private vehicle with her mother in the setting of 2 complaints: 1. Patient is concerned that she has a beginning of a left great toe pressure ulcer that she has noticed over the past several days. At baseline she has minimal feeling in her feet. She noticed some skin changes after taking a hot shower the other day. She has no history of diabetes and she denies routine tobacco, ethanol, and illicits. She first noticed the changes 8 days ago. She has not recently been on any antibiotics. She denies any fevers. She notes that she noticed what appeared to be a red dot associated with a cold wave. She has never had a pressure ulcer in the past. 2. Patient is also concerned about possibility of urinary tract infection. She self catheterizes. She has not been on any recent antibiotics. She has had no fevers but did have chills 2 days ago. She denies flank pain nausea vomiting and abdominal pain. She has no history of ureterolithiasis. She is not sexually active. She has had urinary tract infections in the past. Exam General: Well-appearing in no acute distress speaking in complete sentences. Head: Normocephalic, atraumatic. Eye: Extraocular eye movements intact. No conjunctival injection. No scleral icterus. Ear, nose, mouth, throat: Grossly normal inspection. Normal voice, handling secretions normally. Neck: Trachea midline. Cardiovascular: Well-perfused distal extremities. Respiratory: Nonlabored respiration. Gastrointestinal: Nondistended abdomen. Musculoskeletal: Left lower extremity with remote surgical scars that showed an photos below. At the metatarsal head of the first toe there is a slightly discolored blanchable violaceous approximately 1 x 1 cm macule. Cap refill less than 2 seconds in the toes. Palpable PT and DP pulses. Patient is able to dorsi and plantarflex at baseline which is slightly limited. Skin: Normal for age and race, grossly normal temperature and turgor. No acute rash. Neurologic: Alert and appropriate, no apparent acute deficits. Psychiatric: Mood and manner are appropriate. Grooming and personal hygiene are appropriate. Related Data Home Medications ?Medication ?Instructions ?Recorded ?Confirmed ascorbic acid (vitamin C) 500 mg 500 mg PO DAILY 07/29/20 12/10/24 capsule fexofenadine 180 mg tablet 180 mg PO DAILY 07/29/20 12/10/24 (Chata Allergy) accapella secretion clearing device PO DAILY PRN 12/06/21 09/01/23 acetylcysteine 600 mg capsule (NAC) 1,200 mg PO BID 12/06/21 12/10/24 calcium 250 mg (phosphate)-vit D3 400 tab PO BID 12/06/21 12/10/24 12.5 mcg (500 unit) chewable tablet (Citracal-D3 Gummies) catheter 14 Fr 12/06/21 12/10/24 disposable gloves (Nitrile Exam 12/07/21 12/10/24 Gloves) albuterol sulfate 90 mcg/actuation 2 puff inhalation Q6H PRN 12/24/21 12/10/24 aerosol inhaler (Ventolin HFA) leg brace #1 ea 11/24/23 12/10/24 fluticasone propionate 50 1 spray intranasal DAILY #16 grams 03/18/24 12/10/24 mcg/actuation nasal spray,suspension vibegron 75 mg tablet (Gemtesa) 75 mg PO DAILY #90 tabs 09/17/24 12/10/24 paroxetine HCl 20 mg tablet 20 mg PO DAILY #90 tabs 09/23/24 12/10/24 amitriptyline 10 mg tablet 10 mg PO QHS #90 tabs 10/03/24 12/10/24 cefpodoxime 200 mg tablet 200 mg PO Q12H 5 days #20 tabs 12/10/24 Previous Rx's ?Medication ?Instructions ?Recorded leg brace #1 ea 11/24/23 fluticasone propionate 50 1 spray intranasal DAILY #16 grams 03/18/24 mcg/actuation nasal spray,suspension vibegron 75 mg tablet (Gemtesa) 75 mg PO DAILY #90 tabs 09/17/24 paroxetine HCl 20 mg tablet 20 mg PO DAILY #90 tabs 09/23/24 amitriptyline 10 mg tablet 10 mg PO QHS #90 tabs 10/03/24 cefpodoxime 200 mg tablet 200 mg PO Q12H 5 days #20 tabs 12/10/24 Allergies Allergy/AdvReac Type Severity Reaction Status Date / Time coconut Allergy Intermediate Itching Unverified 12/10/24 11:24 latex Allergy Intermediate Other (See Verified 12/10/24 11:24 Comment) animal dander Allergy Unknown Unknown Unverified 12/10/24 11:24 General JODI: 3 Medical Decision Making Quality:SDOH Health Related Social Needs: 2 No Data to Display PFSH All Active Problems (Updated 12/10/24 @ 12:35 by Diallo Davies MD) Self-catheterizes urinary bladder (Acute) Pain in left foot (Acute) Acute UTI (Acute) FH: factor V Leiden mutation (Chronic) mom is heterozygous; father . Alopecia (Chronic) Chronic constipation (Chronic) Onychomycosis (Chronic) toenails great bilat Leg length discrepancy (Chronic) uses lift in right shoe Neurogenic bowel (Chronic) with constipation Asthma (Chronic) GERD (gastroesophageal reflux disease) (Chronic) Anxiety and depression (Chronic) Neurogenic bladder (Chronic) self caths up to 5 x daily, typicaly 3-4 x daiy Spina bifida (Chronic) Allergic rhinitis due to allergen (Chronic) Medical History Club foot resolved with surgery pre school- bilateral Hydrocephalus Insomnia Meningomyelocele Migraine headache Right knee pain Scoliosis Spina bifida Tension headache Tethering of spinal cord repaired 1995 Tongue tied repaired around 1999 Surgical History History of surgical procedure 1995 bilateral heel cord release, repair of club feet bilaterally, surgery for tethered cord in 1994 ST[employer]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 Maternal Grandfather , 74 Heart disease Paternal Grandfather , 72 Alcohol use disorder Maternal Grandmother , 86 Depression Diabetes Hypertension Hyperlipidemia Dementia Paternal Grandmother , 84 Alcohol use disorder Asthma Depression Social History (Updated 09/01/23 @ 18:10 by Tamia Powell) Smoking/Tobacco Use Status: Never Second Hand Exposure: No Smoking risk assessment performed?: Yes Alcohol Intake: never Drug use: Never Substance use type: does not use Counseling given: No Counseling provided: none Adopted: No Caregiver/Support person: Yes Foster care: No Household members: family and caregiver Housing: house Communication Needs: None and Corrective Lenses Education Level: college Details: College steps program Do you need help understanding health information?: Often current occupation: Works at [employer]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 Pets and animals: Yes Pets and animals: cat(s) and dog(s) Sexually active: No Do you think of yourself as: bisexual Current gender identity: female What is your relationship status?: never How often do you talk on the phone with friends or family?: never How often do you get together with friends or relatives?: decline to answer How often do you attend mu-ism or episcopal services?: 4 or more times per year Do you belong to any clubs or organized social groups?: no Panel score (0-1 are the most socially isolated patients): 1 What type of physical activity do you participate in: yoga Duration: < 15 minutes/day Frequency: 1-2 times per week Klarissa/Congregation: Non buddhist Special klarissa needs: Yes (objection to vaccines) Seatbelt use: always Helmet use: Yes Helmet use: always Drive intox or ride w/intox 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
[2024-12-10 11:13] VITALS: BP 115/75; PULSE 110; RESP 10; TEMP 36.6; O2SAT 98
[2024-12-10 11:56] VITALS: BP 115/75; PULSE 110; RESP 12; TEMP 36.6; O2SAT 98
[2024-12-10 12:00] VITALS: RESP 12
[2024-12-10 12:01] LABS: Bilirubin Negative (Negative); Blood Negative (Negative); Clarity Sl Cloudy (Clear); Glucose Negative (Negative); Ketones Negative (Negative); Leukocyte Esterase Small (Negative); Nitrite Positive (Negative); Specific Gravity 1.015 (1.005-1.025); Urobilinogen 0.2 mg/dL (Up to 0.2); pH 8.5 (5-8)
[2024-12-10 12:07] LABS: Bacteria Moderate HPF (Negative); Epithelial Cells Few HPF (Negative); RBC 0-2 HPF (0-2)
[2024-12-10 12:08] LABS: C & S Indicated? No; Casts Negative LPF (Negative); Crystals Few Amorphous HPF (Negative); Mucus Trace (Negative)
[2024-12-10 12:33] VITALS: PULSE 72; O2SAT 100
[2024-12-10 12:45] VITALS: BP 112/73; PULSE 76; RESP 12; TEMP 36.6; O2SAT 100
== END 2024-12-10 12:46 | disposition home or self-care (01) ==
PROVIDERS: Emergency Provider Emergency Medicine; PCP Family Medicine
DX: M79.672 Pain in left foot (principal); N31.9 Neuromuscular dysfunction of bladder, unspecified; Q05.4 Unspecified spina bifida with hydrocephalus; Z98.2 Presence of cerebrospinal fluid drainage device
CPT/HCPCS: 99283; 81003; 81015